=== PATIENT | male | born 1950 | race Caucasian/White ===

== ENCOUNTER 2020-08-05 11:56 | Inpatient (IN) | payer MEDICARE ==
[~2020-08-05] VITALS: Ht 180.3 cm; Wt 46.7 kg
[2020-08-05 12:13] VITALS: BP 169/96
[2020-08-05] MEDS ORDERED: LIPITOR40 MG PO (12:50)
[2020-08-05] MEDS ORDERED: CARVEDILOL3.125 MG PO (12:50)
[2020-08-05] MEDS ORDERED: DIGOXIN125 MCG PO (12:51)
[2020-08-05] MEDS ORDERED: JANTOVEN1 MG PO (12:51)
[2020-08-05] MEDS ORDERED: LISINOPRIL5 MG PO (12:51)
[2020-08-05] MEDS ORDERED: JANTOVEN2.5 MG PO (12:51)
[2020-08-05] MEDS ORDERED: LEXAPRO 10 MG T10 M2 PO (12:52)
[2020-08-05] MEDS ORDERED: PROTONIX40 M4 PO (12:52)
[2020-08-05] MEDS ORDERED: LASIX 20 MG TAB20 MG PO (12:52)
[2020-08-05] MEDS ORDERED: RISPERDAL 1 MG T1 MG PO (12:52)
[2020-08-05] MEDS ORDERED: LEVO-T75 MCG PO (12:53)
[2020-08-05] MEDS ORDERED: SPIRONOLACTONE25 MG PO (12:53)
[2020-08-05 13:14] LABS: ABSOLUTE BASOPHILS 0.1 thou/uL (0.0-0.2); ABSOLUTE EOSINOPHILS 0.2 thou/uL (0.0-0.7); ABSOLUTE LYMPHOCYTES 0.8 thou/uL (0.8-5.3); ABSOLUTE MONOCYTES 0.7 thou/uL (0.0-1.2); ABSOLUTE NEUTROPHILS 4.1 thou/uL (1.6-8.1); BASOPHILS 1.3 %; EOSINOPHILS 3.6 %; HEMOGLOBIN 12.1 gm/dL (14.0-18.0); LYMPHOCYTES 13.9 %; MCH 29.2 pg (26.0-34.0); MCHC 32.9 g/dL (28.0-37.0); MCV 88.8 fL (80.0-100.0); MONOCYTES 11.7 %; MPV 7.5 fl. (7.2-11.1); NUCLEATED RBCS 0 /100WBC; PLATELET COUNT* 190 thou/uL (150-400); POLYS 69.5 %; RBC 4.16 mil/uL (4.50-6.00); RDW-CV 17.9 % (10.5-14.5)
[2020-08-05 13:21] LABS: CALCIUM 8.5 mg/dL (8.5-10.1); CREATININE 0.9 mg/dL (0.6-1.3); POTASSIUM 3.8 mmol/L (3.5-5.1)
[2020-08-05 13:32] LABS: ALBUMIN 2.6 g/dL (3.4-5.0); TOTAL BILIRUBIN 0.9 mg/dL (<0.1-1.0)
[2020-08-05 13:40] LABS: INR 2.1; PROTIME 21.5 Seconds (9.20-11.50)
--- NOTE | 2020-08-05 16:31 | 2DMMODE ---
[place] [address] 2 D/M-MODE ECHOCARDIOGRAM Name: LATA BLANCO Room: [place] [address] ADM IN .R.#: [id number] Admission: 08/05/20 Attend Phys: Zeke Woods, Discharge: Date of : 52 Date of Service: 08/05/20 1631 Report #: [id number] THIS REPORT FOR: cc: Travis Goodson MD, Thomas W. MD Liston, Michael J. MD [facility] ~ APPROVED REPORT Study performed: 08/05/2020 15:26:50 EXAM: Comprehensive 2D, Doppler, and color-flow Echocardiogram Patient Location: Out-Patient BSA: 2.12 HR: 102 bpm BP: 139/85 mmHg Other Information Study Quality: Good Indications Congestive Heart Failure 2D Dimensions IVSd: 11.30 (7-11mm) LVOT Diam: 20.32 (18-24mm) LVDd: 61.45 mm PWd: 11.84 (7-11mm) Ascending Ao: 31.13 (22-36mm) LVDs: 42.17 (25-40mm) Aortic Root: 32.39 mm Volumes Left Atrial Volume (Systole) LA ESV Index: 37.20 mL/m2 Aortic Valve AoV Peak Enoc.: 1.24 m/s AO Peak Gr.: 6.14 mmHg LVOT Max P.96 mmHg AO Mean Gr.: 3.58 mmHg LVOT Mean P.88 mmHg LVOT Max V: 0.70 m/s AO V2 VTI: 17.70 cm LVOT Mean V: 0.42 m/s JORGE ALBERTO (VTI): 1.75 cm2 LVOT V1 VTI: 9.57 cm Mitral Valve MV Decel. Time: 211.34 [place] [address] 2 D/M-MODE ECHOCARDIOGRAM Name: LATA BLANCO Room: [address] IN [facility]#: [id number] Admission: 08/05/20 Attend Phys: Zeke Woods, Discharge: Date of : 52 Date of Service: 08/05/20 1631 Report #: [id number] MV E Max Enoc.: 1.32 m/s MV PHT: 61.29 ms MVA (PHT): 3.59 cm2 TDI E/Lateral E': 13.20 E/Medial E': 16.50 Medial E' Enoc.: 0.08 m/s Lateral E' Enoc.: 0.10 m/s Pulmonary Valve PV Peak Enoc.: 1.15 m/s PV Peak Gr.: 5.28 mmHg Tricuspid Valve RAP Estimate: 10.00 mmHg TR Peak Gr.: 44.93 mmHg RVSP: 54.93 mmHg PA Pressure: 54.93 mmHg Left Ventricle Left ventricle is moderately dilated. There is severe global hypokinesis. Mild concentric left ventricular hypertrophy. Left ventricular systolic function is severely decreased. LVEF is 20-25%. This study is not technically sufficient to allow evaluation of the LV diastolic function due to atrial fibrillation. Right Ventricle The right ventricle is normal size. The right ventricular systolic function is normal. Atria Left atrium is mildly dilated. Right atrium is moderately dilated. Aortic Valve The aortic valve is normal in structure. No aortic regurgitation is present. There is no aortic valvular stenosis. Mitral Valve Mild mitral annular calcification. Moderate to severe mitral regurgitation No evidence of mitral valve stenosis. Tricuspid Valve The tricuspid valve is normal in structure. Moderate tricuspid regurgitation. There is severe pulmonary hypertension. Pulmonic Valve The pulmonary valve is normal in structure. [place] [address] 2 D/M-MODE ECHOCARDIOGRAM Name: BELLALATA Rajinder Room: [address]#: [id number] Admission: 08/05/20 Attend Phys: Zeke Woods, Discharge: Date of : 52 Date of Service: 08/05/20 1631 Report #: [id number] valvular regurgitation. Great Vessels The aortic root is normal in size. IVC is dilated and collapses <50% with inspiration. Pericardium There is no pericardial effusion. <Conclusion> Mild concentric left ventricular hypertrophy. Left ventricular systolic function is severely decreased. LVEF is 20-25%. There is severe global hypokinesis. Left atrium is mildly dilated. Right atrium is moderately dilated. Mild mitral annular calcification. Moderate to severe mitral regurgitation Moderate tricuspid regurgitation. There is severe pulmonary hypertension. IVC is dilated and collapses <50% with inspiration. <ELECTRONICALLY SIGNED> By: Toribio Toussaint MD, FACC 08/05/20 1631 [id number] Toribio Toussaint MD, FACC /INF
[2020-08-05 18:31] VITALS: BP 146/80
[2020-08-05 20:00] VITALS: BP 146/80
[2020-08-05 21:00] VITALS: BP 140/78
[2020-08-06 00:38] VITALS: BP 118/72
[2020-08-06 04:00] VITALS: BP 128/72
--- NOTE | 2020-08-06 05:29 | NUR ---
Admitted pt around 2009. Get situated to room. Tele in placed tracing Sinus tach. Pt complains of Bilateral leg pain rated as 9. PRN meds given per dec, pt report partial relief. Pt state pain is intermittent pain. Pt leg noted swelling and excoriation. PT has wound consult. Pt legs elevated to pillow. Pt given lasix as ordered. Pt use urinal. AOX4, up ad aleshia. Call light within reach, will continue POC.
[2020-08-06 06:01] LABS: ABSOLUTE BASOPHILS 0.1 thou/uL (0.0-0.2); ABSOLUTE EOSINOPHILS 0.3 thou/uL (0.0-0.7); ABSOLUTE LYMPHOCYTES 0.8 thou/uL (0.8-5.3); ABSOLUTE MONOCYTES 0.8 thou/uL (0.0-1.2); ABSOLUTE NEUTROPHILS 4.4 thou/uL (1.6-8.1); BASOPHILS 1.3 %; EOSINOPHILS 4.5 %; HEMATOCRIT 35.4 % (42.0-52.0); HEMOGLOBIN 11.7 gm/dL (14.0-18.0); LYMPHOCYTES 12.9 %; MCH 28.8 pg (26.0-34.0); MCV 87.2 fL (80.0-100.0); MONOCYTES 12.6 %; MPV 7.8 fl. (7.2-11.1); NUCLEATED RBCS 0 /100WBC; PLATELET COUNT* 181 thou/uL (150-400); POLYS 68.7 %; RBC 4.06 mil/uL (4.50-6.00); RDW-CV 18.3 % (10.5-14.5); WBC 6.5 thou/uL (4.0-11.0)
[2020-08-06 06:12] LABS: INR 2.3
[2020-08-06 06:23] LABS: CALCIUM 8.4 mg/dL (8.5-10.1); CREATININE 0.8 mg/dL (0.6-1.3); POTASSIUM 3.5 mmol/L (3.5-5.1)
[2020-08-06 09:19] VITALS: BP 128/84
--- NOTE | 2020-08-06 10:21 | NUR ---
WOUND NURSE: PATIENT SEEN TO ADDRESS WOUNDS TO BLE RELATED TO SCRATCHING HIS LEGS 2 WEEKS AGO RESULTING IN WOUNDS AND CELLULITIS. RIGHT LOWER LEG WITH LINEAR LINES OF EXCORIATIONS WITHIN A CLUSTER MEASURING 19 X 27 X 0.1 CM. THERE ARE MULTIPLE AREAS CONTAIN REDDISH BROWN SCABS WITH MINIMAL SEROUS DRAINAGE AT THIS TIME FOB ELEVATED, LOCALIZED REDNESS AND WARMTH PRESENT. 1+ PITTING EDEMA. FEET AND TOES ARE WARM AND PEDAL PULSES PRESENT WITH CAPILLARY REFILL < 3 SECONDS. RLE GIRTH MEASUREMENTS ARE: FOREFOOT: 25.5 CM, ANKLE 24.5 CM, CALF 40.5 CM. LEFT LOWER LEG WOUNDS IN CLUSTER MEASURING 23..0 X 29. 5 X 0.1 CM. MULTIPLE LINEAR LESIONS IN THIS AREA CONTAINING REDDISH BROWN SCABS. THERE IS MINIMAL SEROUS DRAINAGE AT THIS TIME. LOCALIZED REDNESS AND WARMTH IS PRESENT. AGAIN PEDAL PULSES PRESENT AND CAPILLARY REFILL OF < 3 SECONDS. CLEANSED BLE WITH SOAP AND WATER, RINSED WITH WATER, THEN PATTED DRY. APPLIED LOTION TO INTACT SKIN TOES TO KNEE. APPLIED XEROFORM GAUZE UNDER ABD'S TO WOUNDED AREAS, THEN WRAPPED WITH KERLEX ROLL GAUZE UNDER RUFUS WRAPS. FOB ELEVATED TO ASSIST WITH CONTROLLING EDEMA. PATIENT INSTRUCTED ON MEASURES TO PROMOTE HEALING AND PREVENT COMPLICATIONS. PATIENT ALSO SCHEDULED FOR [facility] APPT NEXT WEEK AT HIS REQUEST AND APPROVAL BY DR. GLASS. PATIENT INFORMED AND PROVIDED WITH [facility] BUSINESS CARD WITH APPT WROTE ON THE BACK.
--- NOTE | 2020-08-06 11:25 | NUR ---
PT IS ALERT AND ORIENTED BUT FORGETFUL AT TIMES PLAN TO TRANSFER TO [facility] D/T FAMILY REQUEST AND PT PHYSICIANS BEING THERE BLE TAKEN CARE OF BY WOUND CARE AND WRAPPED WITH KERLIX AND RUFUS WRAPS WHICH HAS HELPED WITH PAIN PT STATED PT SCRATCHES BLE WHICH IS EVIDENT WHEN LOOKING AT THEM [place] PRN Q6H FOR PAIN LAST GIVEN AT 0600 PT IS UP AD [place] LIVES BY SELF CHF NOTED WITH EF AT 20-25% EDUCATION ON SALT INTAKE AND WATER INTAKE SON AT BEDSIDE CALL LIGHT IN REACH
--- NOTE | 2020-08-06 11:25 | EKG ---
[place] [address] ELECTROCARDIOGRAM REPORT Name: LATA BLANCO Room: [address] ADM IN [facility]#: [id number] Admission: 08/05/20 Attend Phys: Zeke Woods, Discharge: Date of : 52 Date of Service: 08/05/20 1312 Report #: [id number] THIS REPORT FOR: //name// [facility] ED Test Date: 2020-08-05 Test Time: 13:12:09 Pat Name: LATA BLANCO Department: Room: [facility] Gender: M Orthopedic Nurse: : 1950 Requested By: Danielle Manley Order Number: [id number] MD: Polo Bartholomew Measurements Intervals [place] Rate: 101 P: 40 [place]: 173 QRS: -47 QRSD: 120 T: 114 QT: 355 QTc: 461 Interpretive Statements Sinus tachycardia Left atrial enlargement Nonspecific IVCD with LAD Nonspecific T abnormalities, lateral leads No previous ECG available for comparison Electronically Signed On 08-06-2020 11:25:49 COUNCILOR by Polo Bartholomew [email or web address] <ELECTRONICALLY SIGNED> By: Polo Bartholomew MD, FACC 08/06/20 1125 1312 1312 Polo Bartholomew MD, [facility] /EPI
[2020-08-06 12:00] VITALS: BP 135/83
--- NOTE | 2020-08-06 12:46 | NUR ---
Pt is A&O. Resides at home alone. Independent, dtr and son live close and assist as needed, son completes grocery shopping. No DME. Hx of HH. Hx of SNF at [place]. Dtr requesting transfer to [facility], CM initiated, [facility] is full and not accepting transfers, updated Pt and Plan dc to home tomorrow. Son in room and aware of POC.
[2020-08-06 16:38] VITALS: BP 108/71
[2020-08-06 20:45] VITALS: BP 130/72
[2020-08-07] VITALS (8 sets, daily range): BP systolic 122–127; BP diastolic 70–73
[2020-08-07 05:20] LABS: INR 2.9; PROTIME 29.3 Seconds (9.20-11.50)
--- NOTE | 2020-08-07 07:39 | NUR ---
Alert and oriented x 4. Bilat LE's have edema and acewrap dressings are dry and intact. They have been elevated on pillow. He did not have any cardiac discomfort or diaphoresis. He only had that short time where his rhythym was Vtach. He had pain meds x 2 and he has slept well.
[2020-08-07 09:10] LABS: ALBUMIN 2.6 g/dL (3.4-5.0); CALCIUM 8.5 mg/dL (8.5-10.1); CREATININE 1.1 mg/dL (0.6-1.3); POTASSIUM 3.4 mmol/L (3.5-5.1); TOTAL PROTEIN 6.5 g/dL (6.4-8.2)
[2020-08-07 09:30] LABS: ABSOLUTE BASOPHILS 0.1 thou/uL (0.0-0.2); ABSOLUTE EOSINOPHILS 0.4 thou/uL (0.0-0.7); ABSOLUTE MONOCYTES 0.9 thou/uL (0.0-1.2); ABSOLUTE NEUTROPHILS 5.2 thou/uL (1.6-8.1); BASOPHILS 1.3 %; HEMATOCRIT 38.1 % (42.0-52.0); HEMOGLOBIN 12.6 gm/dL (14.0-18.0); LYMPHOCYTES 13.6 %; MCH 29.2 pg (26.0-34.0); MCHC 33.2 g/dL (28.0-37.0); MONOCYTES 11.4 %; MPV 7.9 fl. (7.2-11.1); NUCLEATED RBCS 0 /100WBC; PLATELET COUNT* 197 thou/uL (150-400); POLYS 68.7 %; RBC 4.32 mil/uL (4.50-6.00); RDW-CV 18.9 % (10.5-14.5); WBC 7.6 thou/uL (4.0-11.0)
[2020-08-07] MEDS ORDERED: MINOCYCLINE HC100 M2 PO (10:11)
--- NOTE | 2020-08-07 11:13 | NUR ---
Pt discharging to home today, HH set up with [facility] per dtr's request. Dtr in room and will transport
--- NOTE | 2020-08-07 12:33 | NUR ---
RECEIVED REPORT. ASSUMED CARE OF PT AROUND 0730. PT A/O X4, FORGETFUL AT TIMES. AM ASSESSMENT AND VITALS COMPLETED CHARTED. PARTS COUNTER SPECIALIST IN PLACE TRACING CHARTED. DOCTORS ROUNDED, DISCHARGE ORDERS RECEIVED. DISCHARGE COMPLETED DOCUMENTED. DISCHARGE GONE OVER WITH PT AND PT'S DAUGHTERS, ALL COMMUNICATE UNDERSTANDING. PT AWARE OF FOLLOW UP APPOINTMENTS. POST HOSPITAL STAY HF APPTMENT MADE WITH PCP. DC WOUND PHOTO REFUSED- LEGS WRAPPED YESTERDAY. IV AND PARTS COUNTER SPECIALIST REMOVED. ALL BELONGINGS GATHERED AND SENT OUT WITH PT. PT LEFT UNIT IN WC WITH NURSING STAFF. PT LEFT HOSPITAL IN CAR WITH DAUGHTER.
== END 2020-08-07 12:25 | disposition home health service (06) | DRG 602 ==
LOC: M.ERS 11:56 → M.TBA-ER 14:35 → M.2W 14:35
PROVIDERS: Personal Emergency Response Attendant; ADMIT Internal Medicine; ATTEND Internal Medicine
DX: L03.116 Cellulitis of left lower limb (principal); R65.11 Systemic inflammatory response syndrome (SIRS) of non-infectious origin with acute organ dysfunction; I50.43 Acute on chronic combined systolic (congestive) and diastolic (congestive) heart failure; I13.0 Hypertensive heart and chronic kidney disease with heart failure and stage 1 through stage 4 chronic kidney disease, or unspecified chronic kidney disease; J91.8 Pleural effusion in other conditions classified elsewhere; N17.9 Acute kidney failure, unspecified; L03.115 Cellulitis of right lower limb; Z20.828 Contact with and (suspected) exposure to other viral communicable diseases; N18.9 Chronic kidney disease, unspecified; I25.5 Ischemic cardiomyopathy; I72.2 Aneurysm of renal artery; I73.9 Peripheral vascular disease, unspecified; Z93.3 Colostomy status; Z79.01 Long term (current) use of anticoagulants; Z23 Encounter for immunization; Z79.899 Other long term (current) drug therapy

== ENCOUNTER → 2020-08-14 | Outpatient (CLI) | payer MEDICARE ==
[~2020-08-14] MED LIST: CARVEDILOL3.125 MG PO; DIGOXIN125 MCG PO; JANTOVEN1 MG PO; JANTOVEN2.5 MG PO; LASIX 20 MG TAB20 MG PO; LEVO-T75 MCG PO; LEXAPRO 10 MG T10 M2 PO; LIPITOR40 MG PO; LISINOPRIL5 MG PO; MINOCYCLINE HC100 M2 PO; PROTONIX40 M4 PO; RISPERDAL 1 MG T1 MG PO; SPIRONOLACTONE25 MG PO
== END ==
LOC: M.WC 09:00
PROVIDERS: ATTEND Family Medicine
DX: I87.333 Chronic venous hypertension (idiopathic) with ulcer and inflammation of bilateral lower extremity (principal); L97.812 Non-pressure chronic ulcer of other part of right lower leg with fat layer exposed; L97.822 Non-pressure chronic ulcer of other part of left lower leg with fat layer exposed; I11.0 Hypertensive heart disease with heart failure; I50.22 Chronic systolic (congestive) heart failure; I25.10 Atherosclerotic heart disease of native coronary artery without angina pectoris; F41.9 Anxiety disorder, unspecified; F32.9 Major depressive disorder, single episode, unspecified; Z99.81 Dependence on supplemental oxygen; Z93.3 Colostomy status; Z87.891 Personal history of nicotine dependence; Z79.01 Long term (current) use of anticoagulants

== ENCOUNTER → 2020-08-21 | Outpatient (CLI) | payer MEDICARE | LOC: M.WC 07:53 | PROVIDERS: ATTEND Family Medicine | DX: I87.333 Chronic venous hypertension (idiopathic) with ulcer and inflammation of bilateral lower extremity (principal); L97.818 Non-pressure chronic ulcer of other part of right lower leg with other specified severity; L97.828 Non-pressure chronic ulcer of other part of left lower leg with other specified severity; I11.0 Hypertensive heart disease with heart failure; I50.21 Acute systolic (congestive) heart failure; I25.10 Atherosclerotic heart disease of native coronary artery without angina pectoris; F41.9 Anxiety disorder, unspecified; F32.9 Major depressive disorder, single episode, unspecified; Z87.891 Personal history of nicotine dependence; Z79.01 Long term (current) use of anticoagulants ==